=== PATIENT | female | born 1980 | race Caucasian/White ===

== ENCOUNTER 2023-07-10 18:28 | Emergency (ER) | payer SELFPAY ==
[2023-07-10 18:35] VITALS: BP 116/81; PULSE 102; RESP 20; TEMP 99.8; BMI 33.6
[2023-07-10] MEDS ORDERED: FAMOTIDINE 20 MG/50 ML IVPB 20 MG/50 ML MG IVPB ONE ×2 (19:38→20:41)
[2023-07-10] MEDS ORDERED: IBUPROFEN 600 MG TABLET (FP) PO ONE ×2 (19:38→20:41)
[2023-07-10] MEDS ORDERED: ONDANSETRON 4 MG/2 ML VIAL IVPUSH ONE (19:38)
[2023-07-10] MEDS ORDERED: SODIUM CHLORIDE 1,000 ML IV STA (19:38)
[2023-07-10] MEDS ORDERED: ONDANSETRON 4 MG/2 ML VIAL ONE (20:41)
[2023-07-10 21:18] LABS: BASO % 0.4 % (0-2.0); EOS % 2.1 % (0-4.5); HEMATOCRIT 37.7 % (32.4-45.2); HEMOGLOBIN 12.2 GM/dL (10.7-15.3); LYMPH % 23.6 % (8-40); MCH 30.2 pg (25.7-33.7); MCHC 32.5 g/dl (32.0-36.0); MEAN CELL VOLUME 93.1 fl (80-96); MEAN PLT VOLUME 8.9 fl (7.5-11.1); MONO % 6.5 % (3.8-10.2); NEUT % 67.4 % (42.8-82.8); PLATELET COUNT 235 10^3/uL (134-434); RBC 4.05 M/mm3 (3.60-5.2); RDW 12.6 % (11.6-15.6); WHITE BLOOD COUNT 12.3 K/mm3 (4.0-10.0)
[2023-07-10 21:21] LABS: EPI CELLS 2 /uL (0-25.1); HYALINE CASTS 0 /uL (0-3.1); PH,URINE 5.5 (5.0-8.0); URINE APPEARANCE CLOUDY; URINE BACTERIA >9,000 /uL (0-1359); URINE BILIRUBIN NEGATIVE (NEGATIVE); URINE COLOR YELLOW; URINE GLUCOSE (UA) NEGATIVE (NEGATIVE); URINE KETONE NEGATIVE (NEGATIVE); URINE LEUK ESTERASE 2+ (NEGATIVE); URINE NITRITE POSITIVE (NEGATIVE); URINE PROTEIN 1+ (NEGATIVE); URINE RBC 275 /uL (0-23.9); URINE UROBILINOGEN 0.2 mg/dL (0.2-1.0); URINE WBC 1061 /uL (0-25.8)
[2023-07-10 21:25] LABS: INR 1.3 (0.83-1.09)
[2023-07-10 21:40] LABS: POTASSIUM 3.7 mmol/L (3.5-5.1)
[2023-07-10 21:42] LABS: CALCIUM 8.9 mg/dL (8.5-10.1)
[2023-07-10 21:43] LABS: ALBUMIN 3.5 g/dl (3.4-5.0); MAGNESIUM 1.9 mg/dL (1.8-2.4)
[2023-07-10 21:46] LABS: CREATININE 0.7 mg/dL (0.55-1.3)
[2023-07-10 21:47] LABS: BILIRUBIN,TOTAL 0.6 mg/dL (0.2-1); TOT PROT 7.6 g/dl (6.4-8.2)
[2023-07-10] MEDS ORDERED: CEPHALEXIN MONOHYDRATE 500 MG CAPSULE (UD) PO ONE (21:58)
[2023-07-10] MEDS ORDERED: CEPHALEXIN MONOHYDRATE 500 MG CAPSULE (UD) ONE (22:23)
== END 2023-07-10 22:39 | disposition home or self-care (01) ==
LOC: JER 18:28
PROC: 3E033GC Introduction of Other Therapeutic Substance into Peripheral Vein, Percutaneous Approach (ICD-10-PCS; principal; 2023-07-10)
PROC: 3E033GC Introduction of Other Therapeutic Substance into Peripheral Vein, Percutaneous Approach (ICD-10-PCS; 2023-07-10)
DX: R10.84 Generalized abdominal pain (principal); R50.9 Fever, unspecified; R51.9 Headache, unspecified; R42 Dizziness and giddiness; J02.9 Acute pharyngitis, unspecified; R07.9 Chest pain, unspecified; R06.02 Shortness of breath; R11.0 Nausea; R19.7 Diarrhea, unspecified; N39.0 Urinary tract infection, site not specified; Z20.822 Contact with and (suspected) exposure to COVID-19
CPT/HCPCS: 0241U-QW; 36415; 71046-TC-FY; 80053; 81003; 83690; 83735; 84484; 84703; 85025; 85610; 85730; 87086; 87186; 93005; 93010; 99285-25

== ENCOUNTER 2023-07-12 15:39 | Observation (INO) | payer OTHER ==
[2023-07-12] MEDS ORDERED: LACTATED RINGERS SOLUTION 1000 ML INFUS.BAG IV ONE (17:06)
[2023-07-12] MEDS ORDERED: METOCLOPRAMIDE HCL INJECTION 10 MG/2 ML VIAL IVPUSH ONE (17:06)
[2023-07-12] MEDS ORDERED: ERTAPENEM SODIUM 1 GM in SODIUM CHLORIDE 50 ML IVPB ONE (17:07)
[2023-07-12] MEDS ORDERED: FAMOTIDINE 20 MG/50 ML IVPB 20 MG/50 ML MG IVPB ONE ×2 (17:08→18:09)
[2023-07-12] MEDS ORDERED: ERTAPENEM SODIUM 1 GM VIAL ONE (17:14)
[2023-07-12] MEDS ORDERED: METOCLOPRAMIDE HCL INJECTION 10 MG/2 ML VIAL ONE (17:14)
[2023-07-12 18:32] LABS: POTASSIUM 4.2 mmol/L (3.5-5.1)
[2023-07-12 18:35] LABS: BASO % 0.4 % (0-2.0); EOS % 3.9 % (0-4.5); HEMATOCRIT 36.9 % (32.4-45.2); HEMOGLOBIN 12.1 GM/dL (10.7-15.3); LYMPH % 35.3 % (8-40); MCH 30.6 pg (25.7-33.7); MCHC 32.9 g/dl (32.0-36.0); MEAN CELL VOLUME 93.1 fl (80-96); MEAN PLT VOLUME 8.9 fl (7.5-11.1); MONO % 5.1 % (3.8-10.2); NEUT % 55.3 % (42.8-82.8); PLATELET COUNT 278 10^3/uL (134-434); RBC 3.96 M/mm3 (3.60-5.2); RDW 12.5 % (11.6-15.6); WHITE BLOOD COUNT 7.4 K/mm3 (4.0-10.0)
[2023-07-12 18:35] LABS: CALCIUM 9.1 mg/dL (8.5-10.1)
[2023-07-12 18:36] LABS: ALBUMIN 3.7 g/dl (3.4-5.0); BLOOD UREA NITROGEN 13.4 mg/dL (7-18)
[2023-07-12 18:37] LABS: INR 1.19 (0.83-1.09); PROTHROMBIN TIME (PATIENT) 13.8 SEC (9.7-13.0)
[2023-07-12 18:38] LABS: CREATININE 0.7 mg/dL (0.55-1.3)
[2023-07-12 18:40] LABS: ACTIVATED PTT 35.3 SECONDS (25.2-36.5); BILIRUBIN,TOTAL 0.6 mg/dL (0.2-1); TOT PROT 7.3 g/dl (6.4-8.2)
[2023-07-12] MEDS ORDERED: PANTOPRAZOLE SODIUM 40 MG VIAL IVPUSH ONE (19:00)
[2023-07-12] MEDS ORDERED: MAG HYDROX/AL HYDROX/SIMETH -MYLANTA- ORAL SUSPENSION PO ONE (19:00)
[2023-07-12] MEDS ORDERED: MAG HYDROX/AL HYDROX/SIMETH 30 ML UNIT-DOSE CUP ONE (19:54)
[2023-07-12] MEDS ORDERED: PANTOPRAZOLE SODIUM 40 MG VIAL ONE (19:55)
[2023-07-13] MEDS ORDERED: IBUPROFEN 400 MG TABLET (FP) PO PRN ×2 (03:34→15:54)
[2023-07-13 04:37] LABS: EPI CELLS 15 /uL (0-25.1); HYALINE CASTS 2 /uL (0-3.1); URINE APPEARANCE CLOUDY; URINE BACTERIA 8 /uL (0-1359); URINE BILIRUBIN NEGATIVE (NEGATIVE); URINE COLOR YELLOW; URINE GLUCOSE (UA) NEGATIVE (NEGATIVE); URINE KETONE NEGATIVE (NEGATIVE); URINE LEUK ESTERASE 1+ (NEGATIVE); URINE NITRITE NEGATIVE (NEGATIVE); URINE PROTEIN 1+ (NEGATIVE); URINE RBC 287 /uL (0-23.9); URINE WBC 192 /uL (0-25.8)
[2023-07-13 06:29] LABS: BASO % 0.3 % (0-2.0); EOS % 4.7 % (0-4.5); HEMATOCRIT 34.2 % (32.4-45.2); HEMOGLOBIN 11.6 GM/dL (10.7-15.3); LYMPH % 42.6 % (8-40); MCH 31.5 pg (25.7-33.7); MCHC 33.9 g/dl (32.0-36.0); NEUT % 45.4 % (42.8-82.8); PLATELET COUNT 244 10^3/uL (134-434); RBC 3.68 M/mm3 (3.60-5.2); RDW 12.9 % (11.6-15.6); WHITE BLOOD COUNT 7.1 K/mm3 (4.0-10.0)
[2023-07-13 06:46] LABS: POTASSIUM 4.1 mmol/L (3.5-5.1)
[2023-07-13 06:48] LABS: CALCIUM 8.4 mg/dL (8.5-10.1)
[2023-07-13 06:49] LABS: BLOOD UREA NITROGEN 13.9 mg/dL (7-18)
[2023-07-13 06:52] LABS: CREATININE 0.7 mg/dL (0.55-1.3)
[2023-07-13 06:53] LABS: BILIRUBIN,TOTAL 0.5 mg/dL (0.2-1)
[2023-07-13 06:54] LABS: TOT PROT 6.3 g/dl (6.4-8.2)
[2023-07-13 07:23] LABS: ALBUMIN 2.9 g/dl (3.4-5.0)
[2023-07-13] MEDS ORDERED: ENOXAPARIN NA (PORCINE) 40 MG/0.4 ML DISP.SYRIN SQ ONE (09:16)
[2023-07-13 09:20] LABS: YEAST NONE SEEN (NEGATIVE)
[2023-07-13] MEDS: ENOXAPARIN NA (PORCINE) 40 MG/0.4 ML DISP.SYRIN SQ SCH (09:25)
[2023-07-13] MEDS: ERTAPENEM SODIUM 1 GM in SODIUM CHLORIDE 50 ML IVPB SCH (09:25)
[2023-07-13 12:52] VITALS: BMI 33.1
[2023-07-13] MEDS ORDERED: ACETAMINOPHEN 325 MG TABLET (FP) PO SCH (15:45)
[2023-07-13] MEDS ORDERED: IBUPROFEN 600 MG TABLET (FP) PO PRN (20:51)
[2023-07-14 05:22] VITALS: RESP 18
[2023-07-14 09:16] VITALS: BP 95/50; PULSE 66; TEMP 98.7
[2023-07-14] MEDS: ENOXAPARIN NA (PORCINE) 40 MG/0.4 ML DISP.SYRIN SQ SCH (10:09)
[2023-07-14] MEDS: ERTAPENEM SODIUM 1 GM in SODIUM CHLORIDE 50 ML IVPB SCH (10:12)
[2023-07-14 11:03] LABS: HEMATOCRIT 37.9 % (32.4-45.2); HEMOGLOBIN 12.7 GM/dL (10.7-15.3); MCHC 33.5 g/dl (32.0-36.0); MEAN CELL VOLUME 92.6 fl (80-96); MEAN PLT VOLUME 8.8 fl (7.5-11.1); PLATELET COUNT 279 10^3/uL (134-434); RBC 4.09 M/mm3 (3.60-5.2); RDW 12.7 % (11.6-15.6); WHITE BLOOD COUNT 6.4 K/mm3 (4.0-10.0)
[2023-07-14 11:23] LABS: POTASSIUM 4.3 mmol/L (3.5-5.1)
[2023-07-14 11:26] LABS: CALCIUM 9.1 mg/dL (8.5-10.1)
[2023-07-14 11:27] LABS: ALBUMIN 3.4 g/dl (3.4-5.0); BLOOD UREA NITROGEN 17.9 mg/dL (7-18); MAGNESIUM 2.5 mg/dL (1.8-2.4)
[2023-07-14 11:30] LABS: CREATININE 0.8 mg/dL (0.55-1.3)
[2023-07-14 11:31] LABS: BILIRUBIN,TOTAL 0.4 mg/dL (0.2-1)
== END 2023-07-14 18:15 | disposition home or self-care (01) ==
LOC: JER 15:39 → JERBED 17:09 → J6S 07-13 12:25
PROVIDERS: ADMIT Internal Medicine; ATTEND Internal Medicine
PROC: 0JH63XZ Insertion of Tunneled Vascular Access Device into Chest Subcutaneous Tissue and Fascia, Percutaneous Approach (ICD-10-PCS; principal; 2023-07-12)
PROC: 3E03329 Introduction of Other Anti-infective into Peripheral Vein, Percutaneous Approach (ICD-10-PCS; 2023-07-12)
PROC: 3E023GC Introduction of Other Therapeutic Substance into Muscle, Percutaneous Approach (ICD-10-PCS; 2023-07-12)
PROC: 3E033GC Introduction of Other Therapeutic Substance into Peripheral Vein, Percutaneous Approach (ICD-10-PCS; 2023-07-12)
PROC: 3E033GC Introduction of Other Therapeutic Substance into Peripheral Vein, Percutaneous Approach (ICD-10-PCS; 2023-07-12)
DX: N39.0 Urinary tract infection, site not specified (principal); B96.89 Other specified bacterial agents as the cause of diseases classified elsewhere; Z16.12 Extended spectrum beta lactamase (ESBL) resistance; N10 Acute pyelonephritis; Z87.440 Personal history of urinary (tract) infections; Z88.8 Allergy status to other drugs, medicaments and biological substances
CPT/HCPCS: 0241U-QW; 36415; 36569; 80053; 81003; 83605; 83690; 83735; 84100; 84484; 85025; 85027; 85610; 85730; 87040; 87086; 93005; 93010; 96365; 96366; 96367; 96372; 96375; 99285-25; G0378

== ENCOUNTER 2023-07-15 12:15 | Day surgery (SDC) | payer SELFPAY ==
[2023-07-15] MEDS ORDERED: ERTAPENEM SODIUM 1 GM in SODIUM CHLORIDE 50 ML IVPB SCH (12:45)
[2023-07-15 13:46] VITALS: BP 108/71; PULSE 94; RESP 18; TEMP 98.9
== END 2023-07-15 13:40 | disposition home or self-care (01) ==
LOC: FINFUSION 12:15 → FM/S 12:15 → FINFUSION 13:40
PROVIDERS: ATTEND Internal Medicine Infectious Disease
DX: N39.0 Urinary tract infection, site not specified (principal)
CPT/HCPCS: 96365

== ENCOUNTER 2023-07-16 12:15 | Day surgery (SDC) | payer OTHER ==
[2023-07-16] MEDS ORDERED: ERTAPENEM SODIUM 1 GM in SODIUM CHLORIDE 50 ML IVPB ONE (12:45)
[2023-07-16 13:26] VITALS: BP 107/68; PULSE 80; RESP 14; TEMP 98.5
== END 2023-07-16 13:27 | disposition home or self-care (01) ==
LOC: FINFUSION 12:15 → FM/S 12:16 → FINFUSION 13:27
PROVIDERS: ATTEND Internal Medicine Infectious Disease
DX: N39.0 Urinary tract infection, site not specified (principal)
CPT/HCPCS: 96365

== ENCOUNTER 2023-07-17 16:53 | Day surgery (SDC) | payer OTHER ==
[2023-07-17] MEDS: ERTAPENEM SODIUM 1 GM in SODIUM CHLORIDE 50 ML IVPB ONE (17:13)
[2023-07-17 18:09] VITALS: BP 105/69; PULSE 70; RESP 18; TEMP 98.6
== END 2023-07-17 18:12 | disposition home or self-care (01) ==
LOC: FINFUSION 16:53 → FM/S 16:54 → FINFUSION 18:12
PROVIDERS: ATTEND Internal Medicine Infectious Disease
DX: N39.0 Urinary tract infection, site not specified (principal)
CPT/HCPCS: 96365

== ENCOUNTER 2023-07-18 11:50 | Day surgery (SDC) | payer OTHER ==
[2023-07-18] MEDS: ERTAPENEM SODIUM 1 GM in SODIUM CHLORIDE 50 ML IVPB ONE (12:12)
[2023-07-18 12:54] VITALS: BP 114/75; PULSE 92; RESP 18; TEMP 98.6
== END 2023-07-18 12:56 | disposition home or self-care (01) ==
LOC: FINFUSION 11:50 → FM/S 11:50 → FINFUSION 12:56
PROVIDERS: ATTEND Internal Medicine Infectious Disease
DX: N39.0 Urinary tract infection, site not specified (principal)
CPT/HCPCS: 96365

== ENCOUNTER 2023-07-19 12:52 | Day surgery (SDC) | payer OTHER ==
[2023-07-19] MEDS: ERTAPENEM SODIUM 1 GM in SODIUM CHLORIDE 50 ML IVPB ONE (13:03)
[2023-07-19 13:54] VITALS: BP 120/72; PULSE 78; RESP 16; TEMP 97.9
== END 2023-07-19 13:56 | disposition home or self-care (01) ==
LOC: FINFUSION 12:52 → FM/S 12:53 → FINFUSION 13:56
PROVIDERS: ATTEND Internal Medicine Infectious Disease
DX: N39.0 Urinary tract infection, site not specified (principal)
CPT/HCPCS: 96365

== ENCOUNTER 2023-07-20 12:23 | Day surgery (SDC) | payer OTHER ==
[2023-07-20] MEDS: ERTAPENEM SODIUM 1 GM in SODIUM CHLORIDE 50 ML IVPB ONE (12:34)
[2023-07-20 13:29] VITALS: BP 112/65; PULSE 90; RESP 16; TEMP 98.6
== END 2023-07-20 13:32 | disposition home or self-care (01) ==
LOC: FINFUSION 12:23 → FM/S 12:23 → FINFUSION 13:32
PROVIDERS: ATTEND Internal Medicine Infectious Disease
DX: N39.0 Urinary tract infection, site not specified (principal)
CPT/HCPCS: 96365

== ENCOUNTER 2023-07-21 12:31 | Day surgery (SDC) | payer OTHER ==
[2023-07-21] MEDS: ERTAPENEM SODIUM 1 GM in SODIUM CHLORIDE 50 ML IVPB ONE (13:05)
[2023-07-21 14:45] VITALS: BP 105/77; PULSE 91; RESP 18; TEMP 98.1
== END 2023-07-21 13:45 | disposition home or self-care (01) ==
LOC: FINFUSION 12:31 → FM/S 12:33 → FINFUSION 13:45
PROVIDERS: ATTEND Internal Medicine Infectious Disease
DX: N39.0 Urinary tract infection, site not specified (principal)
CPT/HCPCS: 96365

== ENCOUNTER 2023-07-22 13:11 | Day surgery (SDC) | payer OTHER ==
[2023-07-22 13:38] VITALS: PULSE 97; RESP 18; TEMP 98.5
[2023-07-22] MEDS: ERTAPENEM SODIUM 1 GM in SODIUM CHLORIDE 50 ML IVPB SCH (14:03)
[2023-07-22 14:28] VITALS: BP 100/72
== END 2023-07-22 14:25 | disposition home or self-care (01) ==
LOC: FINFUSION 13:11 → FM/S 13:12 → FINFUSION 14:25
PROVIDERS: ATTEND Internal Medicine Infectious Disease
DX: N39.0 Urinary tract infection, site not specified (principal)
CPT/HCPCS: 96365

== ENCOUNTER 2023-07-22 14:27 | Emergency (ER) | payer OTHER ==
[2023-07-22 14:35] VITALS: BP 126/79; PULSE 87; RESP 20; TEMP 98; BMI 30.7
[2023-07-22 15:34] LABS: HEMOGLOBIN 13.4 G/dL (10.7-15.3); MCH 31.1 pg (25.7-33.7); MCHC 33.6 g/dl (32.0-36.0); MEAN CELL VOLUME 92.9 fl (80-96); MEAN PLT VOLUME 8.8 fl (7.5-11.1); PLATELET COUNT 237.5 10^3/uL (134-434); RBC 4.31 10^6/uL (3.60-5.2); RDW 13.6 % (11.6-15.6); WHITE BLOOD COUNT 6.7 10^3/uL (4.0-10.8)
[2023-07-22 15:39] LABS: INR 1.23 (0.83-1.09); PROTHROMBIN TIME (PATIENT) 14.2 SEC (9.7-13.0)
[2023-07-22 15:46] LABS: PLATELET ESTIMATE ADEQUATE
[2023-07-22 15:48] LABS: ALBUMIN 4.1 g/dl (3.4-5.0); ALK PHOS 75 U/L (45-117); ANION GAP 9 mmol/L (4-13); BILIRUBIN,TOTAL 0.4 mg/dl (0.2-1); CALCIUM 9.1 mg/dl (8.5-10.1); CHLORIDE 104 mmol/L (98-107); CO2 24 mmol/L (21-32); CREATININE 0.6 mg/dl (0.6-1.3); GLUCOSE,RANDOM 95 mg/dl (74-106); POTASSIUM 4.1 mmol/L (3.5-5.1); SGOT/AST 19 U/L (15-37); SGPT/ALT 21 U/L (7-52); SODIUM 137 mmol/L (136-145); TOT PROT 7.1 g/dl (6.4-8.2)
== END 2023-07-22 17:28 | disposition home or self-care (01) ==
LOC: FER 14:27
DX: R06.02 Shortness of breath (principal); R05.9 Cough, unspecified; R21 Rash and other nonspecific skin eruption; R07.9 Chest pain, unspecified; U07.1 COVID-19
CPT/HCPCS: 0241U-QW; 36415; 71046-TC-FY; 80053; 81025; 82550; 84484; 85027; 85610; 93005; 99285-25

== ENCOUNTER 2023-07-23 15:10 | Day surgery (SDC) | payer OTHER ==
[2023-07-23] MEDS: ERTAPENEM SODIUM 1 GM in SODIUM CHLORIDE 50 ML IVPB ONE (16:05)
[2023-07-23 18:09] VITALS: BP 110/75; PULSE 85; RESP 16; TEMP 98.6
== END 2023-07-23 18:21 | disposition home or self-care (01) ==
LOC: FINFUSION 15:10 → FM/S 15:12 → FINFUSION 18:21
PROVIDERS: ATTEND Internal Medicine Infectious Disease
DX: N39.0 Urinary tract infection, site not specified (principal)
CPT/HCPCS: 96365

== ENCOUNTER 2023-07-24 12:53 | Day surgery (SDC) | payer OTHER ==
[2023-07-24] MEDS: ERTAPENEM SODIUM 1 GM in SODIUM CHLORIDE 50 ML IVPB ONE (13:05)
[2023-07-24 14:26] VITALS: BP 118/78; PULSE 78; RESP 16; TEMP 98.4
== END 2023-07-24 14:31 | disposition home or self-care (01) ==
LOC: FINFUSION 12:53 → FM/S 12:54 → FINFUSION 14:31
PROVIDERS: ATTEND Internal Medicine Infectious Disease
DX: N39.0 Urinary tract infection, site not specified (principal)
CPT/HCPCS: 96365